=== PATIENT | female | born 1955 | race Caucasian/White ===

== ENCOUNTER 2024-08-27 11:58 | Emergency (ER) | payer OTHER, SELFPAY ==
[2024-08-27 11:59] VITALS: BMI 16.6
--- NOTE | 2024-08-27 12:03 | ED.CVA ---
History of Present Illness
General
Chief Complaint: CVA/TIA Symptoms
Source: patient and ambulance crew
Exam Limitations: clinical condition
Time Seen by Provider: 08/27/24 12:01
Nursing documentation reviewed up to this point in time: agreed with
Onset of Stroke Symptoms
Onset of symptoms known: Yes
Date of onset of symptoms: 08/27/24
Time of onset of symptoms: 11:00
Time pt last seen normal is known: Yes
Date last time pt seen normal: 08/27/24
Time last time pt seen normal: 11:00
History of Present Illness
History of Present Illness:
69-year-old female presents emergency due to right-sided weakness. This began 1 hour ago. She is having difficulty talking.
Review of Systems
Review of Systems
Allergies reviewed?: Yes
Unable to obtain full review of systems at this time due to: due to acuity
Neurological: Reports weakness
Phy Exam
Physical Exam
Physical Exam:
Physical Exam
General: Moderate distress
Neck: supple. no meningeal signs. normal posterior pharynx
Heart: s1/s2 regular rate and rhythm, no murmur. equal radial
pulses.
HEENT: Pupils equal round reactive to light, EOMI
Lungs: no acute respiratory distress. clear bilaterally
Abdomen: normal bowel sounds. not tender. no CVAT
Neuro: alert, given that right-sided paralysis, expressive aphasia, right-sided facial
Skin: no rash
Psychiatric: well kept. interactive and cooperative
Extremities: no edema. no calf tenderness. negative homans. good distal pulses
NIH Stroke Score
Level of Consciousness: 0 - Alert
LOC questions: 0-Answers both correctly
LOC Commands: 0-Performs both correctly
Best Gaze: 0-Normal
Visual Lisa: 0=Normal, no visual loss
Facial palsy: 2=Partial paralysis
Motor - Right Arm: 4=No movement
Motor - Left Arm: 0=No drift 10 seconds
Motor - Right Le-No movement
Motor - Left Le-No drift 5 seconds
Limb Ataxia: 0-Absent
Sensation: 0-Normal
Best Language: 2-Severe aphasia
Dysarthria: 0-Normal
Extinction and Inattention: 2-Total gil inattention
Total Score:: 14
Scores
NIH Stroke Score
Level of Consciousness: 0 - Alert
LOC Questions: 2-Neither correct
LOC Commands: 2-Performs neither correctly
Best Horizontal Gaze: 0-Normal
Visual Lisa: 0=Normal, no visual loss
Facial Palsy: 2=Partial paralysis
Motor - Right Arm: 4=No movement
Motor - Left Arm: 0=No drift 10 seconds
Motor - Right Le-No movement
Motor - Left Le-No drift 5 seconds
Limb Ataxia: 0-Absent
Sensation: 0-Normal
Best Language: 2-Severe aphasia
Dysarthria: 0-Normal
Extinction and Inattention: 0-No abnormality
Total Score:: 16
Course
Orders/Labs/Results
Orders:
Orders
08/27/24 12:01
Electrocardiogram (*1) Stat
Reason for Study: Other
Other Reason for Exam: neuro symptoms
CT HEAD STROKE ALERT W/o Cont Urgent
Comment:
Reason For Exam: Right sided paralysis, [address] HEAD/NECK ANG STROKE ALERT Urgent
Comment:
Reason For Exam: Right-sided paralysis, 1 hour ago
Cardiac Monitoring- Treatment ONCE
EKG- Treatment ONCE
Pulse Ox/cont/shift [RESP] Stat
Quantity: 1
08/27/24 12:06
Tenecteplase [Tnkase] 11 mg Syringe [Syringe Non-Pump] 0 ml IV NOW
Provider explained risk/benefits to patient &/or caregiver?: Other
Comment: patient aphasic
not here
08/27/24 12:17
Complete Blood Count/With Diff Urgent
Comprehensive Metabolic Panel Urgent
PTT Urgent
Prothrombin Time Urgent
Abnormal Lab Results
08/27/24
12:17
WBC 3.9 L 10^3/uL
(4.8-10.8)
MCH 32.6 H pg
(27.0-31.0)
Chloride 108 H mmol/L
(98-107)
Glucose 119 H mg/dl
(70-99)
AST 54 H U/L
(14-36)
ALT 60 H U/L
(0-35)
Alkaline Phosphatase 127 H U/L
(38-126)
08/27/24 12:17
08/27/24 12:17
Vital Signs
Initial and Last Documented VS:
Initial Vital Signs
Pulse Resp BP
66 18 149/97
08/27/24 12:18 08/27/24 12:18 08/27/24 12:18
Last Documented Vital Signs
Temp Pulse Resp BP Pulse Ox
97.8 F 66 18 147/88 99
08/27/24 12:19 08/27/24 12:53 08/27/24 12:53 08/27/24 12:53 08/27/24 12:42
MDM/Problems Addressed
Differential Diagnosis Includes:
Intracranial hemorrhage, hemorrhagic stroke, large vessel occlusion
MDM/Problems Addressed:
69-year-old female with left MCA M1 occlusion acute CVA that began at 11 AM. TNK given, with mild improvement of right leg weakness. Discussed with neurology at [facility] who accept patient. Patient flown via helicopter.
Chronic conditions affecting care: HTN and Other (Mitral valve replacement)
Acute Exacerbation and/or Progression of Chronic Illness: HTN
*Radiology
Radiology exam reviewed: radiology read reviewed (CT head no acute findings, CT angiography shows left MCA M1 occlusion)
*Pulse Oximetry
Patient hypoxic: no
*EKG
Interpreted by ED Provider?: Yes
EKG Intrepretation Date: 08/27/24
EKG Intrepretation Time: 12:19
Interpretation: abnormal
Comparison EKG: no comparison EKG present
Heart Rate: 65
Rate: normal
Rhythm: sinus
[place]: normal axis
Interval: normal interval
QRS Pattern: normal QRS
Ischemia: non-specific ST changes
*Awning Frame Maker Interpretation
Rate: normal
Interpretation: normal
Heart Rate: 66
Rhythm: sinus
*Critical Care Note
Total Time (30-74mins, 75-104mins- exclusive of procedures): 45
comment:
Critical care statement: A total of 45 minutes of critical care time was provided for this patient. This includes management of unstable vital signs, evaluation of the patient at bedside, reviewing the patient's pertinent medical records, discussion
with consultants, review of old EKGs and review of pertinent medical records. This time with separate from time utilized to perform the aforementioned documented procedures
Patient Management
Social determinants of health affecting care: Living situation
Discussion with other providers: Code Enforcement Officer (Neurology)
Escalation/DeEscalation of care consider admission/obs:
Transfer indicated
ED Attending Note
-
Portions of this chart may have been created with voice recognition software.� Occasional wrong word or��sound alike� substitutions may have occurred due to the inherent limitations of voice recognition software.
Discharge Plan
Departure
Patient Disposition: Acute Care Hospital
Date of Disposition: 08/27/24
Time of Disposition: 12:17
Patient with high blood pressure during this ER visit?: Yes
Condition: Serious
Discharge Problem:
Acute cerebrovascular accident (CVA) due to occlusion of left middle cerebral artery
Hospital Transfer
Other hospital: [facility]
I certify that the patient requires transfer: Yes
Discussed case with accepting physician: Ksenia Weeks
Reason for transfer: higher level of care and specialties available
Interventions
Interventions:
*Risk Screen - Suicide Last Done: 08/27/24 11:58
*Neglect/Abuse Screening Last Done: 08/27/24 11:58
*ED- Fall Risk Assessment Last Done: 08/27/24 11:58
*ED COVID-19 Vaccine History Last Done: 08/27/24 11:58
*Nursing Disposition Last Done: 08/27/24 13:10
ED- Pulmonary Assessment Last Done: 08/27/24 11:58
ED- Neurological Assessment Last Done: 08/27/24 11:58
ED- Cardiac Assessment Last Done: 08/27/24 11:58
Discharge Date and Time
Discharge Date/Time: 08/27/24 13:10
Print Language: INDONESIAN
--- NOTE | 2024-08-27 12:04 | CON.NEURO ---
Neuro Assessment/Plan
Assessment
Acute Stroke
Head CT imgs rev'd no bleed
CTA imgs rev'd and discussed with radiologist Left M1 oclusion
Gave TNK
Plan
fly to [place] for thrombectomy unless symptoms resolve en route
Consultation
Order
Date of Consultation: 08/27/24
Requesting Provider: Dano Hernandez
Reason for Consult: Stroke
Subjective/Objective
Subjective Data
Date of Service: August 27, 2024
69 year old woman LKN 11 am. went to take a shower and found her mute, right side flaccid
on rx for blood pressure; doesn't know her meds but no history of blood thinners
CVA Assessment
Onset of Stroke Symptoms
Onset of symptoms known: Yes
Date of onset of symptoms: 08/27/24
Time of onset of symptoms: 11:00
NIH Stroke Score
Level of Consciousness: 0 - Alert
LOC Questions: 2-Neither correct
LOC Commands: 2-Performs neither correctly
Best Horizontal Gaze: 0-Normal
Visual Lisa: 0=Normal, no visual loss
Facial Palsy: 2=Partial paralysis
Motor - Right Arm: 4=No movement
Motor - Left Arm: 0=No drift 10 seconds
Motor - Right Le-No movement
Motor - Left Le-No drift 5 seconds
Limb Ataxia: 0-Absent
Sensation: 0-Normal
Best Language: 3-Mute/global aphasia
Dysarthria: 0-Normal
Extinction and Inattention: 0-No abnormality
Total Score:: 17
[2024-08-27 12:18] VITALS: BP 149/97
[2024-08-27] MEDS: TNKASE 2.2 MG IV (12:23)
[2024-08-27 12:24] VITALS: BP 149/97
[2024-08-27 12:34] LABS: APTT 26.6 Sec (23.4-35.0); INR 0.95
[2024-08-27 12:35] LABS: Hematocrit 42.8 % (37.0-47.0); Hemoglobin 15.3 g/dL (12.0-16.0); Mean Corp Hgb Conc. 35.7 g/dL (33.0-37.0); Mean Corpuscular Hgb 32.6 pg (27.0-31.0); Mean Corpuscular Volume 91.3 fL (81.0-99.0); Mean Platelet Volume 10.4 fL (7.4-10.4); Platelet Count 198 10^3/uL (130-400); Red Blood Cell Count 4.69 10^6/uL (4.20-5.40); Red Cell Dist. Width 11.6 % (11.5-14.5); White Blood Cell Count 3.9 10^3/uL (4.8-10.8)
[2024-08-27 12:38] VITALS: BP 152/47
[2024-08-27 12:42] VITALS: BP 152/47
[2024-08-27 12:43] LABS: ALT (SGPT) 60 U/L (0-35); AST (SGOT) 54 U/L (14-36); Albumin 4.4 g/dl (3.5-5.0); Alkaline Phosphatase 127 U/L (38-126); Blood Urea Nitrogen 14 mg/dl (7-17); Calcium 10.2 mg/dl (8.4-10.2); Carbon Dioxide 26 mmol/L (22-30); Chloride 108 mmol/L (98-107); Estimated Creatinine Clearance 63 ml/min; Glucose 119 mg/dl (70-99); Potassium 4.3 mmol/L (3.5-5.1); Sodium 139 mmol/L (135-145); Total Bilirubin 0.8 mg/dl (0.2-1.3); Total Protein 6.6 g/dl (6.3-8.2); eGFR > 60.00
[2024-08-27 12:53] VITALS: BP 147/88
[2024-08-27 14:27] LABS: % Basophils 1.5 % (0-2); % Eosinophils 2.6 % (0-6); % Immature Granulocytes 0.3 % (0-0.5); % Lymphocytes 46.9 % (20.5-51.1); % Monocytes 6.2 % (1.7-9.3); % Neutrophils 42.5 % (42.2-75.2); Absolute Basophils 0.1 10^3/uL (0-0.2); Absolute Eosinophils 0.1 10^3/uL (0-0.7); Absolute Lymphocytes 1.8 10^3/uL (1.2-3.4); Absolute Monocytes 0.2 10^3/uL (0.1-0.6); Absolute Neutrophils 1.7 10^3/uL (1.4-6.5); Nucleated Red Blood Cells % 0 %
== END 2024-08-27 13:10 | disposition short-term general hospital (02) ==
LOC: EMR 11:58
PROVIDERS: EMERGENCY PHYSICIAN Emergency Medicine; OTHER PHYSICIAN Psychiatry & Neurology Clinical Neurophysiology
DX: I63.512 Cerebral infarction due to unspecified occlusion or stenosis of left middle cerebral artery (principal); G81.91 Hemiplegia, unspecified affecting right dominant side; R47.01 Aphasia; R29.810 Facial weakness
CPT/HCPCS: 99291; 96374; 70450; 70496; 70498; 80053; 85025; 85610; 85730; 93005; J3101; Q9967